=== PATIENT | male | born 1990 | race Caucasian/White ===

== ENCOUNTER 2019-04-21 12:03 | Emergency (ER) | payer OTHER ==
[~2019-04-21] VITALS: Ht 182.9 cm; Wt 149.7 kg
[~2019-04-21 12:03] MED LIST: IBUPROFEN800 MG PO; KEFLEX500 MG PO; NORFLEX100MG PO; PROTONIX40 MG PO
== END 2019-04-21 20:14 | disposition home or self-care (01) ==
LOC: ER 12:03
DX: K52.89 Other specified noninfective gastroenteritis and colitis (principal)